=== PATIENT | female | born 1965 | race Caucasian/White ===

== ENCOUNTER 2020-02-16 05:37 | Emergency (ER) | payer BC ==
[2020-02-16] MEDS ORDERED: methylPREDNISolone Sodium Succinate 125 MG/2 ML SDV IM ONE (05:50)
[2020-02-16] MEDS ORDERED: Albuterol/Ipratropium 3.0-0.5 MG/3 ML Neb Soln NEB ONE (05:50)
[2020-02-16] MEDS ORDERED: LORazepam 2 MG/ML SDV IM STA (05:53)
[2020-02-16] MEDS ORDERED: Codeine/guaiFENesin 10-100 MG/5 ML Syrup 5 ML Cup PO STA (06:33)
--- NOTE | 2020-02-16 06:45 | EDM.PDOC ---
ED HPI GENERAL MEDICAL PROBLEM - General Stated Complaint: SOB Time Seen by Provider: 02/16/20 05:55 Source of Information: Reports: Patient History Limitations: Reports: No Limitations - History of Present Illness INITIAL COMMENTS - FREE TEXT/NARRATIVE: Patient presented to the ED because of coughing and wheezing for 3 days. She has a h/o RAD and ? Asthma. She is using albuterol inhaler and duoneb. She was just done with her prednisone x 5 days which according to her improved her breathing. There is no fever/chills. - Related Data Allergies Allergy/AdvReac Type Severity Reaction Status Date / Time acetaminophen [From Tylenol] Allergy Difficulty Verified 02/16/20 06:39 Breathing Home Meds: Home Meds Codeine/guaiFENesin [guaiFENesin-Codeine Syrup] 10 ml PO Q6H #120 ml 02/16/20 [Rx] predniSONE [Prednisone] 40 mg PO DAILY #10 tablet 02/16/20 [Rx] ED ROS GENERAL - Review of Systems Review Of Systems: See Below Constitutional: Reports: No Symptoms HEENT: Reports: No Symptoms Respiratory: Reports: Shortness of Breath, Wheezing, Cough, Sputum Cardiovascular: Reports: No Symptoms Endocrine: Reports: No Symptoms GI/Abdominal: Reports: No Symptoms : Reports: No Symptoms Musculoskeletal: Reports: No Symptoms Skin: Reports: No Symptoms Neurological: Reports: No Symptoms Psychiatric: Reports: No Symptoms ED EXAM, GENERAL - Physical Exam Exam: See Below Exam Limited By: No Limitations General Appearance: Alert, No Apparent Distress Ears: Normal External Exam, Normal Canal Nose: Normal Inspection, Normal Mucosa Throat/Mouth: Normal Inspection, Normal Lips, Normal Teeth Head: Atraumatic, Normocephalic Neck: Normal Inspection, Supple, Non-Tender Respiratory/Chest: No Respiratory Distress, Wheezing Cardiovascular: Normal Peripheral Pulses, Regular Rate, Rhythm, No Edema GI/Abdominal: Normal Bowel Sounds, Soft, Non-Tender Back Exam: Normal Inspection, Full Range of Motion Course - Vital Signs Text/Narrative:: CXR-neg Duoneb Solumedrol 125 mg IM Robitussin AC 10 ml po x1 - Orders/Labs/Meds Orders: Active Orders 24 hr Category Date Time Status RT Aerosol Therapy [RC] ASDIRECTED Care 02/16/20 05:51 Active Chest 1V Frontal [CR] Stat Exams 02/16/20 05:54 Taken Meds: Medications Discontinued Medications Generic Name Dose Route Start Last Admin Trade Name Marcus PRN Reason Stop Dose Admin Albuterol/Ipratropium 3 ml 02/16/20 05:50 02/16/20 06:17 Duoneb 3.0-0.5 Mg/3 Ml NEB 02/16/20 05:51 3 ml ONETIME ONE Administration Guaifenesin/Codeine Phosphate 10 ml 02/16/20 06:33 02/16/20 06:41 Robitussin Ac PO 02/16/20 06:34 10 ml NOW STA Administration Lorazepam 2 mg 02/16/20 05:53 02/16/20 06:09 Ativan IM 02/16/20 05:54 2 mg NOW STA Administration Methylprednisolone Sodium Succinate 125 mg 02/16/20 05:50 02/16/20 06:11 Solu-Medrol IM 02/16/20 05:51 125 mg ONETIME ONE Administration Departure - Departure Time of Disposition: 06:45 Disposition: Home, Self-Care 01 Condition: Good Clinical Impression: Reactive airway disease, Acute bronchospasm - Discharge Information Prescriptions: predniSONE [Prednisone] 40 mg PO DAILY #10 tablet Codeine/guaiFENesin [guaiFENesin-Codeine Syrup] 10 ml PO Q6H #120 ml Instructions: Bronchospasm, Adult, [id number] Referrals: PCP,Not In Area [Primary Care Provider] - Forms: ED Department Discharge Additional Instructions: Please read discharge instructions on Reactive Airway Disea Increase oral fluids Prednisone 40 mg daily for 5 days starting today Robitussin with codeine 10 ml every 6 hours as needed for cough Duoneb every 6 hours for 3 days until you're back to your baseline breathing Follow up with a pulmonolist/lung specialist as soon as you can - My Orders Last 24 Hours: My Active Orders 02/16/20 05:51 RT Aerosol Therapy [RC] ASDIRECTED 02/16/20 05:54 Chest 1V Frontal [CR] Stat - Assessment/Plan Last 24 Hours: My Active Orders 02/16/20 05:51 RT Aerosol Therapy [RC] ASDIRECTED 02/16/20 05:54 Chest 1V Frontal [CR] Stat
== END 2020-02-16 07:10 | disposition home or self-care (01) ==
LOC: FB.ED 05:37
DX: J45.909 Unspecified asthma, uncomplicated (principal); Z88.6 Allergy status to analgesic agent
CPT/HCPCS: 71045; 94640; 96372; 99285; A9270; J2060; J2930; J7620-GY